=== PATIENT | female | born 1990 | race African-American/Black ===

== ENCOUNTER 2021-04-10 12:36 | Inpatient (IN) | payer OTHER ==
[~2021-04-10] VITALS: Ht 165.1 cm; Wt 141.4 kg
[2021-04-10 12:49] VITALS: BP 122/80
[2021-04-10 13:16] LABS: URINE BLOOD 3+ (Negative); URINE CLARITY CLOUDY; URINE COLOR RED; URINE GLUCOSE-RANDOM* NEGATIVE (Negative); URINE KETONES NEGATIVE (Negative); URINE NITRITE-REFLEX NEGATIVE (Negative); URINE PROTEIN (DIPSTICK) 1+ (Negative)
[2021-04-10 13:18] LABS: URINE LEUKOCYTES-REFLEX 1+ (Negative)
[2021-04-10 13:19] LABS: ICTOTEST (BILI CONFIRMATORY) Negative (Negative); URINE BILIRUBIN NEGATIVE (Negative)
[2021-04-10 13:26] LABS: ABSOLUTE NEUTROPHILS 2.6 thou/uL (1.4-8.2); BASOPHILS 0.6 % (0.0-2.0); EOSINOPHILS 0.1 % (0.0-3.0); HEMATOCRIT 38.2 % (37.0-47.0); HEMOGLOBIN 12.6 gm/dL (12.0-15.0); LYMPHOCYTES 33.6 % (24.0-44.0); MCH 26.8 pg (26.0-34.0); MCV 81.2 fL (80.0-100.0); MONOCYTES 5.4 % (1.0-8.0); PLATELET COUNT 285 thou/uL (150-400); POLYS 60.3 % (36.0-66.0); RBC 4.71 mil/uL (4.20-5.00); RDW 14.9 % (10.5-14.5); WBC 4.3 thou/uL (4.0-11.0)
[2021-04-10 13:33] LABS: BACTERIA-REFLEX 1-9 Few /HPF (None Seen); CASTS None Seen /LPF (None Seen); CRYSTALS None Seen /LPF (None Seen); SQUAMOUS 0-3 Few /LPF (0-3); URINE RBC >20 Many /HPF (NONE SEEN); URINE WBC-REFLEX 0-5 Rare /HPF (0-5)
[2021-04-10 13:35] LABS: ANION GAP 12 mmol/L (7-16); BUN 7 mg/dL (7-18); CALCIUM 8.7 mg/dL (8.5-10.1); CHLORIDE 101 mmol/L (98-107); CO2 24 mmol/L (21-32); CREATININE 0.8 mg/dL (0.6-1.0); GLUCOSE 111 mg/dL (74-106); SODIUM 137 mmol/L (136-145)
[2021-04-10 13:45] LABS: ALBUMIN 2.8 g/dL (3.4-5.0); SGOT 34 U/L (15-37); SGPT 31 U/L (30-65); TOTAL BILIRUBIN 0.4 mg/dL (0.2-1.0); TOTAL PROTEIN 8.1 g/dL (6.4-8.2); TROPONIN-I <0.06 ng/mL (<0.06)
[2021-04-10 13:55] LABS: BE(vivo) -2.1 mmol/L (-2 to +3); PCO2 30.8 mmHg (35.0-45.0); pH 7.451 (7.360-7.450); sO2 96.4 % (92.0-98.0)
[2021-04-10 13:58] LABS: POTASSIUM 3.8 mmol/L (3.5-5.1)
--- NOTE | 2021-04-10 16:52 | NUR ---
PAGED RT FOR 1600 BREATHING TREATMENT.
[2021-04-10 17:24] VITALS: BP 173/96
--- NOTE | 2021-04-10 17:26 | NUR ---
ATTEMPTED TO CALL REPORT, WAS NOTIFIED RN NOT AVILABLE AT THIS TIME AND WILL CALL BACK LESLIE.
[2021-04-10 17:45] VITALS: BP 158/78
[2021-04-10 18:06] VITALS: BP 159/96
[2021-04-10 20:46] VITALS: BP 139/90
[2021-04-11 00:40] VITALS: BP 145/90
[2021-04-11 05:58] LABS: HEMATOCRIT 34.3 % (37.0-47.0); MCH 26.2 pg (26.0-34.0); MCHC 32.1 g/dL (28.0-37.0); MCV 81.4 fL (80.0-100.0); RBC 4.21 mil/uL (4.20-5.00); RDW 14.6 % (10.5-14.5); WBC 2.4 thou/uL (4.0-11.0)
--- NOTE | 2021-04-11 06:02 | NUR ---
Pt. requested cough med , PLANT OPERATOR notified and order received. Guiafenessin given to pt. with some relief. Denies being in pain. No nausea or vomiting since yesterday am. Up ad eduin in room with steady gait.Cont. on enhanced precaution, afebrile. She slept some.
[2021-04-11 06:14] VITALS: BP 169/97
[2021-04-11 06:22] LABS: ALBUMIN 2.5 g/dL (3.4-5.0); ANION GAP 10 mmol/L (7-16); BUN 7 mg/dL (7-18); CALCIUM 8.1 mg/dL (8.5-10.1); CHLORIDE 106 mmol/L (98-107); CO2 25 mmol/L (21-32); CREATININE 0.6 mg/dL (0.6-1.0); DIRECT BILIRUBIN < 0.1 mg/dL (<0.1-0.2); GLUCOSE 100 mg/dL (74-106); PHOSPHORUS 3.6 mg/dL (2.5-4.9); POTASSIUM 4.1 mmol/L (3.5-5.1); SGOT 22 U/L (15-37); SGPT 32 U/L (30-65); SODIUM 141 mmol/L (136-145); TOTAL BILIRUBIN 0.1 mg/dL (0.2-1.0); TOTAL PROTEIN 7.2 g/dL (6.4-8.2)
[2021-04-11 07:37] VITALS: BP 153/98
--- NOTE | 2021-04-11 10:30 | EKG ---
[place] [address] [facility] [employer] [place] [address] ELECTROCARDIOGRAM REPORT Name: RAMÍREZ HERNÁNDEZIOUS Samir Room #: 358-P ADM IN M.R.#: [id number] Admission: 04/10/21 Attend Phys: Olvin Reeves MD Discharge: Date of : 89 Report #: [id number] [facility] ED Test Date: 2021-04-10 Test Time: 12:52:21 Pat Name: CHANDLER HERNÁNDEZ Department: Room: [facility] Gender: F Exploration Manager: FERNANDOHAIJOYA : 1990 Requested By: Marcela Vera Order Number: [id number] MD: Dante Ramon Measurements Intervals [place] Rate: 131 P: 44 VT: 140 QRS: 36 QRSD: 84 T: -9 QT: 297 QTc: 439 Interpretive Statements Sinus tachycardia Borderline T abnormalities, inferior leads Baseline wander in lead(s) II,III,aVR,aVF No previous ECG available for comparison Electronically Signed On 04-11-2021 10:30:30 CDT by Dante Ramon [email or web address] <ELECTRONICALLY SIGNED> By: Dante Ramon MD, [facility] 04/11/21 1030 1252 1252 Dante Ramon MD, [facility] /EPI
[2021-04-11 11:27] VITALS: BP 139/90
[2021-04-11 15:12] VITALS: BP 144/101
--- NOTE | 2021-04-11 16:44 | NUR ---
RN ASSUMED PT'S CARE AT 0700AM, PT ADMITTED AT 04/10/21 FOR COVID PNEUMONIA,PT HAS STARTED IV ABX AND BREATH TREATMENT , PT'S FEVER, SOB AND COUGHING HAVE IMPROVED, PT IS ON ROOM AIR ,PT'S VS AND O2SAT ARE STABLE, PT DENIES PAIN , PT GETS UP TO BATHROOM WIHTOUT ASSIST,
[2021-04-11 20:06] VITALS: BP 146/99
[2021-04-12 04:03] VITALS: BP 144/98
--- NOTE | 2021-04-12 04:50 | NUR ---
Pt. stated she slept well during the night. Tolerating room air well , no respiratory distress. Cont. on enhanced precaution , afebrile. No nausea or vomiting. Denies any pain. Up ad eduin in room with steady gait. Making some progress towards care plan goals.
[2021-04-12 05:25] LABS: HEMATOCRIT 32.9 % (37.0-47.0); HEMOGLOBIN 10.6 gm/dL (12.0-15.0); MCH 26.3 pg (26.0-34.0); MCHC 32.1 g/dL (28.0-37.0); MCV 81.8 fL (80.0-100.0); RBC 4.02 mil/uL (4.20-5.00); RDW 15.1 % (10.5-14.5); WBC 3.2 thou/uL (4.0-11.0)
[2021-04-12 06:03] LABS: ALBUMIN 2.4 g/dL (3.4-5.0); ANION GAP 11 mmol/L (7-16); BUN 8 mg/dL (7-18); CALCIUM 8.1 mg/dL (8.5-10.1); CHLORIDE 108 mmol/L (98-107); CO2 24 mmol/L (21-32); CREATININE 0.6 mg/dL (0.6-1.0); DIRECT BILIRUBIN < 0.1 mg/dL (<0.1-0.2); GLUCOSE 99 mg/dL (74-106); PHOSPHORUS 3.2 mg/dL (2.5-4.9); SGOT 21 U/L (15-37); SGPT 25 U/L (30-65); SODIUM 143 mmol/L (136-145); TOTAL BILIRUBIN < 0.1 mg/dL (0.2-1.0); TOTAL PROTEIN 6.9 g/dL (6.4-8.2)
[2021-04-12 07:25] VITALS: BP 151/101
--- NOTE | 2021-04-12 07:50 | HC ---
[facility] [place] [address] CONSULTATION Name: CHANDLER HERNÁNDEZ Room #: 358-P ADM IN M.R.#: [id number] Admission: 04/10/21 Attend Phys: Olvin Reeves MD Discharge: Date of : 89 Report #: [id number] THIS REPORT FOR: cc: FAM - No family physician/PCP FAM - No family physician/PCP Nathanael Stanton MD ~ DATE OF SERVICE: 04/10/2021 INFECTIOUS DISEASE CONSULTATION ATTENDING PHYSICIAN: Dr. Reeves. REASON FOR EVALUATION: COVID-19 infection, complicated by pneumonitis. HISTORY OF PRESENT ILLNESS: Chart reviewed. The patient examined. This is a 30-year-old woman without significant medical history, although is obese, who presented to the Emergency Room with complaints of productive cough, progressive shortness of breath for the last few days. She had been evaluated at outside facility, had been screened for COVID, although she has not returned result. She notes she had a loss of taste and smell. she has had issues with nausea, emesis and not able to keep even fluids down. She has had diarrhea. She was evaluated and was confirmed to have COVID-19 testing positivity. Urinalysis was otherwise unremarkable except some hematuria attributed to her menses. Procalcitonin less than 0.05, lactic acid 1.0. CTA chest PE protocol, no evidence of PE, multifocal pneumonia, however, was noted. Electrolytes generally unremarkable. CBC did show leukopenia and anemia as well. Blood cultures collected yesterday are sterile thus far. Repeat chest x-ray this morning shows bilateral infiltrates, otherwise stable. She is empirically started on combination antibacterials with ceftriaxone, azithromycin and remdesivir as well as corticosteroids. PAST MEDICAL HISTORY: Includes preeclampsia. Has 4 children. SOCIAL HISTORY: Nonsmoker. No illicit drug use. Occasional ethanol. FAMILY HISTORY: Noncontributory. REVIEW OF SYSTEMS: Otherwise unremarkable. PHYSICAL EXAMINATION: GENERAL: She is alert, cooperative, appropriate. She is not overtly toxic. She is maintained on ambient air at this point. VITAL SIGNS: Temperature 98.6, pulse 90, respirations 16, blood pressure 153/98. SKIN: Warm, dry, no rashes. HEENT: Normocephalic. Extraocular muscles intact. [address] [address] CONSULTATION Name: CHANDLER HERNÁNDEZ Room #: 358-P [facility] IN .R.#: [id number] Admission: 04/10/21 Attend Phys: Olvin Reeves MD Discharge: Date of : 89 Report #: [id number] NECK: Supple. LUNGS: Few scattered crackles at the bases. HEART: Regular. I do not appreciate a murmur, borderline tachycardic. ABDOMEN: Obese, somewhat firm, nontender. EXTREMITIES: No cyanosis. GENITOURINARY AND RECTAL: Deferred. LABORATORY DATA: Urine culture otherwise unremarkable, indicative of normal cal. Chest x-ray as described above. Most recent electrolytes, sodium 141, potassium 4.1, chloride 106, bicarbonate is 25, anion gap 10, BUN and creatinine 7 and 0.6. LFTs unremarkable. Albumin of 2.5, total protein 7.2. Estimated GFR of 144. CBC: White count of 2.4, H and H 11.0 and 34.3, platelets of 242. CTA as noted above. ASSESSMENT AND PLAN: Coronavirus-19 infection, complicated by pneumonitis. At this point, she is not critically ill. We would continue the remdesivir. We will add ivermectin and associated noninfectious part of the combination therapy. She has been antibacterials. Continue to optimize nutritional status. We will add incentive spirometry. <ELECTRONICALLY SIGNED> By: Nathanael Stanton MD 04/12/21 0750 [id number] 1030 Nathanael Stanton MD /nt
--- NOTE | 2021-04-12 10:36 | NUR ---
ORDERS FOR EVAL AND TREAT. PER NURSING NOTES, Pt IS UP AD RAD. SPOKE WITH Pt WHO STATES SHE IS GETTING UP WITHOUT DIFFICULTY AND DOES NOT FEEL WEAK OR OFF BALANCE. Pt IS ON ROOM AIR. Pt DECLINING FORMAL P.T. EVAL BUT SOUNDS LIKE SHE IS MOVING WELL ENOUGH TO DISCHARGE HOME WHEN MEDICALLY CLEAR
[2021-04-12 11:04] VITALS: BP 147/95
[2021-04-12 15:27] VITALS: BP 148/94
--- NOTE | 2021-04-12 16:28 | NUR ---
INITIAL ASSESSMENT: Received consult. JORDON reviewed chart and spoke with nursing and attending physician. Pt was admitted from home due to COVID pneumonia. Pt placed in Enhanced Isolation. Pt is afebrile and not requiring O2. Pt is on IV steroids and Remdesivir and Ivermectin. SW spoke with pt via phone. Introduced role of SW. Pt is alert/orientated x 4. Pt states she lives at home with her family. Pt has four young children, who are currently staying with her mother. Pt states she is hoping to discharge home today, as her mother just received her COVID test results back and is positive. Pt is wanting to discharge to go pick pulling machine tender her children. SW explained that attending physician will be notified. Pt states she will have transportation home later today. SW notified attending physician. If pt is ready for discharge, no SW needs identified at this time. [facility] to screen pt for [place]-Medicaid and/or financial assistance. JORDON updated pt's nurse. SW is available to assist should needs arise.
[2021-04-12] MEDS ORDERED: PREDNISONE 10 M10 M1 PO (16:36)
[2021-04-12] MEDS ORDERED: TOPROL XL25 MG PO (16:36)
[2021-04-12] MEDS ORDERED: VITAMIN D325 MC1 PO (16:36)
[2021-04-12] MEDS ORDERED: TYLENOL325 MG PO (16:36)
[2021-04-12] MEDS ORDERED: ZINC SULFATE50 MG PO (16:36)
[2021-04-12] MEDS ORDERED: VENTOLIN HFA 1818 GM INH (16:36)
[2021-04-12] MEDS ORDERED: VITAMIN C1000 MG PO (16:36)
[2021-04-12 16:43] VITALS: BP 148/94
--- NOTE | 2021-04-12 18:33 | NUR ---
RN ASSUMED PT'S CARE AT 0700-1815PM, PT IS A&OX4, PT'S SOB AND COUGHT HAVE IMPROVED, PT DOES NOT HAVE FEVER FOR 2 DAYS, PT IS ON ROOM AIR, PT'S VS AND O2SAT ARE STABLE, RN RECEIVED ORDER TO DC PT TO HOME, PT UNDERSTANDED DC TEACHING WELL , GLUING MACHINE OPERATOR AUTOMATIC SENT PT TO ER TO MEET PT'S FAMILY AT 1815PM.
== END 2021-04-12 18:30 | disposition home or self-care (01) | DRG 871 ==
LOC: ER 12:36 → EROBS 17:18 → 3W 17:47
PROVIDERS: Internal Medicine Pulmonary Disease; Physician Assistant; ADMIT Internal Medicine; ATTEND Internal Medicine
PROC: XW033E5 Introduction of Remdesivir Anti-infective into Peripheral Vein, Percutaneous Approach, New Technology Group 5 (ICD-10-PCS; principal; 2021-04-10)
DX: A41.9 Sepsis, unspecified organism (principal); J96.01 Acute respiratory failure with hypoxia; U07.1 COVID-19; J12.82 Pneumonia due to coronavirus disease 2019; J15.9 Unspecified bacterial pneumonia; Z68.43 Body mass index [BMI] 50.0-59.9, adult; E66.01 Morbid (severe) obesity due to excess calories; Z98.891 History of uterine scar from previous surgery
CPT/HCPCS: 10879

== ENCOUNTER 2021-11-10 11:26 | Emergency (ER) | payer OTHER ==
[~2021-11-10] VITALS: Ht 165.1 cm; Wt 134.7 kg
[~2021-11-10 11:26] MED LIST: PREDNISONE 10 M10 M1 PO; TOPROL XL25 MG PO; TYLENOL325 MG PO; VENTOLIN HFA 1818 GM INH; VITAMIN C1000 MG PO; VITAMIN D325 MC1 PO; ZINC SULFATE50 MG PO
[2021-11-10 11:28] VITALS: BP 162/95
== END 2021-11-10 11:46 | disposition home or self-care (01) ==
LOC: ER 11:26
DX: J06.9 Acute upper respiratory infection, unspecified (principal); Z98.890 Other specified postprocedural states; Z79.899 Other long term (current) drug therapy